=== PATIENT | male | born 1965 | race Caucasian/White ===

== ENCOUNTER 2016-03-07 15:36 | Emergency (ER) | payer MEDICAID ==
--- NOTE | 2016-03-07 16:43 | EDPHY ---
H & P Smoking Status: Current every day smoker Time Seen by Provider: 03/07/16 16:15 HPI/ROS: CHIEF COMPLAINT: suicidal ideation HISTORY OF PRESENT ILLNESS: Patient is a 50-year-old male with a history of bipolar disorder, schizoaffective disorder and previous suicide attempts who presents emergency department feeling suicidal. Patient states that he has been compliant with his medications. He has been feeling more more down. He has thoughts of wanting to kill himself. I will slipped my throat. Patient has had previous suicide attempt time to shoot himself. Patient denies any ingestion. He denies alcohol use. Patient has been cutting his left arm. Patient states he is hearing voices telling him to harm himself. REVIEW OF SYSTEMS: My complete review of systems is negative except as mentioned in the HPI. ( Uma Wesley) Past Medical/Surgical History: Includes schizoaffective disorder, bipolar disorder Social history: The patient denies alcohol or drug use. (Uma Wesley) Physical Exam: Vitals noted GENERAL: No acute distress, alert. HEENT: Eyes normal to inspection, normal pharynx, no signs of dehydration. NECK: No thyromegaly, no lymphadenopathy, supple. RESPIRATORY: Clear to auscultation bilaterally, no rales, rhonchi or wheezing. CVS: Regular rate and rhythm, no rubs, murmurs, or gallops. ABDOMEN: Soft, nontender, nondistended, no organomegaly. BACK: Normal to inspection, no CVA tenderness. SKIN: Normal color, no rash, warm, dry. No pallor. Patient has numerous self cutting scars s on his right arm. He has numerous abdominal self cutting scars. Patient has a few superficial cut fabian on his left forearm. They do not require sutures. EXTREMITIES: No pedal edema, no calf tenderness, no Homans sign or cords, no joint swelling. NEURO/PSYCH: Alert and oriented x3, flat affect, normal motor sensory exam. ( Uma Wesley) Constitutional: Initial Vital Signs Temperature (C) 36.9 C 03/07/16 15:52 Heart Rate 87 03/07/16 15:52 Respiratory Rate 16 03/07/16 15:52 Blood Pressure 146/88 H 03/07/16 15:52 O2 Sat (%) 89 L 03/07/16 15:52 Allergies/Adverse Reactions: haloperidol [From Haldol] Allergy (Verified 03/07/16 15:50) haloperidol lactate [From Haldol] Allergy (Verified 03/07/16 15:50) sulfamethoxazole [From Bactrim] Allergy (Verified 03/07/16 15:50) trimethoprim [From Bactrim] Allergy (Verified 03/07/16 15:50) Home Medications: Medication Instructions Recorded Seroquel 100 mg (*) 03/07/16 Xanax 03/07/16 Zoloft 50mg (*) 03/07/16 Medical Decision Making ED Course/Re-evaluation: In the emergency department I discussed etiologies with the patient. I discussed his treatment plan. The patient was placed on a mental health hold. I informed the patient of this and answered all his questions. He was agreeable. Laboratory studies were ordered. Patient's laboratory studies were notable for positive tox screen with benzodiazepines and marijuana. Patient's white count was 10. Chemistry panel unremarkable Psychiatric Services were consulted. 2114: The patient is signed out to Dr. Gibson at change of shift. Patient is awaiting evaluation by Psychiatric Services. (Uma Wesley) I assumed care of the patient from Dr. Wesley at 9:20 p.m. pending psychiatric evaluation. Updated 9:40 p.m.: Patient was seen by the mental health evaluating service and they are recommending inpatient hospitalization. Disposition pending. The patient will be signed over to Dr. Bonner pending psychiatric placement. ( Heath Gibson) Differential Diagnosis: Differential includes but is not limited to depression, schizoaffective disorder , hallucinations, psychosis, overdose, self-harm (Uma Wesley) - Data Points Laboratory Results: Laboratory Results 03/07/16 16:30 03/07/16 16:30 03/07/16 03/07/16 18:25 16:30 WBC 10.17 H 10^3/uL (3.80-9.50) RBC 4.62 10^6/uL (4.40-6.38) Hgb 15.3 g/dL (13.7-17.5) Hct 45.4 % (40.0-51.0) MCV 98.3 fL (81.5-99.8) MCH 33.1 pg (27.9-34.1) MCHC 33.7 g/dL (32.4-36.7) RDW 13.1 % (11.5-15.2) Plt Count 220 10^3/uL (150-400) MPV 8.7 fL (8.7-11.7) Neut % (Auto) 77.1 H % (39.3-74.2) Lymph % (Auto) 11.9 L % (15.0-45.0) Sheridan % (Auto) 7.4 % (4.5-13.0) Eos % (Auto) 2.9 % (0.6-7.6) Baso % (Auto) 0.3 % (0.3-1.7) Nucleat RBC Rel Count 0.0 % (0.0-0.2) Absolute Neuts (auto) 7.84 H 10^3/uL (1.70-6.50) Absolute Lymphs (auto) 1.21 10^3/uL (1.00-3.00) Absolute Monos (auto) 0.75 10^3/uL (0.30-0.80) Absolute Eos (auto) 0.30 10^3/uL (0.03-0.40) Absolute Basos (auto) 0.03 10^3/uL (0.02-0.10) Absolute Nucleated RBC 0.00 10^3/uL (0-0.01) Immature Gran % 0.4 % (0.0-1.1) Immature Gran # 0.04 10^3/uL (0.00-0.10) Sodium 143 mEq/L (134-144) Potassium 4.3 mEq/L (3.5-5.2) Chloride 105 mEq/L (97-110) Carbon Dioxide 27 mEq/l (22-31) Anion Gap 11 mEq/L (8-16) BUN 10 mg/dL (7-23) Creatinine 0.8 mg/dL (0.7-1.3) Estimated GFR > 60 Glucose 98 mg/dL (70-100) Calcium 9.1 mg/dL (8.5-10.4) Urine Opiates Screen NEGATIVE (NEGATIVE) Urine Barbiturates NEGATIVE (NEGATIVE) Ur Phencyclidine Scrn NEGATIVE (NEGATIVE) Ur Amphetamine Screen NEGATIVE (NEGATIVE) U Benzodiazepines Scrn NON-NEGATIVE H (NEGATIVE) Urine Cocaine Screen NEGATIVE (NEGATIVE) U Marijuana (THC) Screen NON-NEGATIVE H (NEGATIVE) Ethyl Alcohol < 10 mg/dL (0-10) Medications Given: Discontinued Medications Lorazepam (Ativan) 1 mg PO EDNOW ONE Stop: 03/07/16 21:21 Last Admin: 03/07/16 21:25 Dose: 1 mg Departure - Departure Clinical Impression: Suicidal ideation, Bipolar disorder Condition: Good Referrals: IN STATE,. [Primary Care Provider] - As per Instructions
[2016-03-07 16:53] LABS: % IMMATURE GRANULYOCYTES 0.4 % (0.0-1.1); ABSOLUTE IMMATURE GRANULOCYTES 0.04 10^3/uL (0.00-0.10); ADD DIFF? NO; ADD MORPH? NO; ADD SCAN? NO; ATYPICAL LYMPHOCYTE FLAG 0 (0-99); FRAGMENT RBC FLAG 0 (0-99); HEMATOCRIT 45.4 % (40.0-51.0); HEMOGLOBIN 15.3 g/dL (13.7-17.5); LEFT SHIFT FLG 0 (0-99); LIPEMIA HEMOLYSIS FLAG 80 (0-99); MEAN CELL HEMOGLOBIN 33.1 pg (27.9-34.1); MEAN CELL HEMOGLOBIN CONCENTR. 33.7 g/dL (32.4-36.7); MEAN CELL VOLUME 98.3 fL (81.5-99.8); MEAN PLATELET VOLUME 8.7 fL (8.7-11.7); PLATELET CLUMPS FLAG 0 (0-99); PLATELET COUNT 220 10^3/uL (150-400); RED BLOOD CELL COUNT 4.62 10^6/uL (4.40-6.38); RED CELL DISTRIBUTION WIDTH 13.1 % (11.5-15.2)
[2016-03-07 17:08] LABS: ANION GAP 11 mEq/L (8-16); CALCIUM 9.1 mg/dL (8.5-10.4); CARBON DIOXIDE 27 mEq/l (22-31); CHLORIDE 105 mEq/L (97-110); CREATININE 0.8 mg/dL (0.7-1.3); ETHANOL SERUM < 10 mg/dL (0-10); GLOMERULAR FILTRATION RATE > 60; GLUCOSE 98 mg/dL (70-100); POTASSIUM 4.3 mEq/L (3.5-5.2); SODIUM 143 mEq/L (134-144)
[2016-03-07] MEDS ORDERED: LORazepam 1 MG TAB PO ONE (21:20)
[2016-03-08 03:04] VITALS: BP 135/100; PULSE 79; RESP 18; TEMP 99; O2SAT 94
== END 2016-03-08 04:04 ==
DX: R45.851 Suicidal ideations (principal); F31.9 Bipolar disorder, unspecified; F17.200 Nicotine dependence, unspecified, uncomplicated
CPT/HCPCS: G0477; G0480